=== PATIENT | female | born 1990 | race African-American/Black ===

== ENCOUNTER 2017-08-19 11:36 | Emergency (ER) | payer OTHER ==
[~2017-08-19] VITALS: Ht 170.2 cm; Wt 70.3 kg
[2017-08-19] MEDS ORDERED: ORAL PAIN REL9.35 GM MUCOUS MEM (12:27)
[2017-08-19 12:49] VITALS: BP 106/68
== END 2017-08-19 12:50 | disposition home or self-care (01) ==
LOC: ER 11:36
DX: K12.0 Recurrent oral aphthae (principal); F41.9 Anxiety disorder, unspecified